=== PATIENT | male | born 2000 | race Hispanic/Latino ===

== ENCOUNTER 2023-09-19 23:50 | Emergency (ER) | payer SELFPAY ==
[2023-09-20] MEDS ORDERED: Ondansetron ODT 4 MG TAB ONE (00:04)
[2023-09-20] MEDS ORDERED: Mag-Al 1200 mg/1200 mg/30 ML UDCUP ONE (00:04)
[2023-09-20] MEDS ORDERED: Lidocaine Viscous Sol 2% 15 ml UD Cup ONE (00:04)
== END 2023-09-20 00:30 | disposition home or self-care (01) ==
LOC: BURERS 23:50
DX: K29.00 Acute gastritis without bleeding (principal)
CPT/HCPCS: 99283; Q0162